=== PATIENT | female | born 1975 | race Caucasian/White ===

== ENCOUNTER 2017-08-01 06:50 | Day surgery (SDC) | payer BC, SELFPAY ==
[2017-07-28 12:31] LABS: Hemoglobin 12.4 g/dl (12.0-15.0); Mean Corp Hgb Conc 32.6 g/gl (32-36); Mean Corpuscular Hgb 29.3 pg (27.0-32.0); Mean Corpuscular Volume 89.8 fL (81-99); Mean Platelet Vol. 11.1 fl (6.2-12.0); Platelet Count 210 K/mm3 (150-450); RBC Distribution Width CV 13.4 % (11.6-14.6); RBC Distribution Width SD 43.9 fl (35.1-43.9); Red Blood Count 4.23 M/mm3 (4.2-5.4); White Blood Count 4.3 K/mm3 (4.4-11.0)
[2017-07-28 12:36] LABS: International Normalized Ratio 1.1; Prothrombin Time (Protime)PT. 13.9 SECONDS (11.7-14.9)
[2017-07-28 12:37] LABS: Partial Thromboplast Time 27.7 Seconds (24.1-36.2)
[2017-07-28 12:39] LABS: Scan Indicated on CBC? Y/N NO
[2017-07-28 13:03] LABS: AST(SGOT) 18 U/L (15-37); Alanine Aminotransfer ALT/SGPT 22 U/L (13-56); Albumin, Serum 3.9 g/dL (3.2-5.0); Alkaline Phosphatase 45 U/L (45-117); Bilirubin, Direct 0.14 mg/dL (0.00-0.30); Globulin 3.4 g/dL (2.2-4.2); Protein, Total 7.3 g/dL (6.4-8.2)
[2017-08-01] VITALS (8 sets, daily range): BP systolic 115–124; BP diastolic 70–82; PULSE 72–102; RESP 16–18; TEMP 36.3–36.7; O2SAT 16–98; BMI 29.2
--- NOTE | 2017-08-01 | THYROID_PTH ---
PATIENT: VANESSA ARGUETA [place] [facility] [place][id number] AGE/SX: 42/F ROOM: RE08/01/[address]: Dr. Sunday Cortez MD : 1975 BED: DIS: 08/01/2017 SPEC #: [id number] RECD: 08/01/17 14:22 STATUS: RUFINO JOE #: [id number] ALEXIS: 08/01/17 00:[address]: Sunday Cortez DEPT: SURGICAL PATHOLOGY RECD BY: Byron Burgos ENTERED: 08/01/17 14:23 SP TYPE: THYROID OTHR DR: Dr. Tushar Thornton MD Tissues: Thyroid gland, NOS Procedures: Surgery Specimen Level V HEADER OPERATION: Thyroid lobectomy PRE-OP DIAGNOSIS: Neoplasm of uncertain behavior of thyroid TISSUE SUBMITTED: Right thyroid lobe MICROSCOPIC DIAGNOSIS Right lobe of thyroid, lobectomy: Colloid nodules with adenomatous change. 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 Three out of three lymph nodes negative for carcinoma. Fragments of parathyroid tissue. AM:hal 08/14/17 COMMENT Three minute foci of papillary microcarcinoma are present in sections of the right thyroid lobe. These measure 1.3, 1.2 and 0.5 mm, respectively. The foci are contained within the thyroid tissue and adjacent, inked peripheral margins are negative for carcinoma. There is no evidence of vascular invasion. Immunohistochemistry ([id number]) supports the above diagnosis. Case has been reviewed in consultation with Dr. Hunter who concurs with the above diagnosis. IDC:SJ MICROSCOPIC DESCRIPTION Slides are reviewed. GROSS DESCRIPTION Received in fixative is one container labeled with the patient's name and designated right thyroid lobe. The specimen consists of a thyroid lobectomy specimen weighing 10 gm and measuring 5 x 3.5 x 1 cm. The specimen is partly disrupted. No externa parathyroid gland tissue is identified. The external surface is inked as follows: anterior surface ? blue, posterior surface ? black, isthmic resection margin ? yellow. Serial sections reveal a guan, solid nodule in the lower portion of the right lobe with focal hemorrhagic area measuring 2 x 2 x 1.5 cm. The entire specimen is submitted in nine cassettes. Cassette 1 contains the most superior portion of the lobe. Cassette 9 contains the most inferior portion of the lobe. Cassettes 69 contain the solid nodule and cassette 7 contains the isthmus. / SJ:rg 08/02/17 TC:0 CPT: 07138
--- NOTE | 2017-08-01 | IMM_PTH ---
PATIENT: VANESSA [place]GUETA [place] [facility] [place][id number] AGE/SX: 42/F ROOM: RE08/01/[address]: Dr. Sunday Cortez MD : 1975 BED: DIS: 08/01/2017 SPEC #: [id number] RECD: 08/03/17 11:24 STATUS: RUFINO JOE #: [id number] ALEXIS: 08/01/17 00:[address]: Sunday Cortez DEPT: IMMUNOHISTOCHEMISTRY RECD BY: Lyly Alexander ENTERED: 08/03/17 11:26 SP TYPE: IMMUNO OTHR DR: Dr. Tushar Thornton MD Tissues: Thyroid gland, NOS Procedures: CK19 (initial) CD56 (add) CK19 (add) GAL-3 (add) HBME (add) PHYSICIAN & INSTITUTION [place] [id number] SPECIMEN INFORMATION: Tissue Source: Right thyroid lobe Clinical Info: Neoplasm Specimen Number: [id number] #7 & 8 CPT code: 23412, 26948 x7 METHODOLOGY: Deparaffinized sections of prefer/formalin-fixed tissue or PAP/DQ stained slides are incubated with monoclonal/polyclonal antibodies/oligonucleotide probes. Localization is made via biotin free immunoperoxidase method. Appropriate controls are performed and reacted as expected. Results on target cell population are indicated in the following table: RESULTS: ANTIBODY / CLONE RESULT Block 7 CK19 (A53-B/A2.26) positive, focal, variable HBME1 (HBME-1) positive GAL3 (9C4) positive, rare, dim CD56 (123C3.D5) positive Block 8 CK19 (A53-B/A2.26) positive, focal, variable HBME1 (HBME-1) positive GAL3 (9C4) positive CD56 (123C3.D5) positive, focal, variable These tests were developed and their performance characteristics determined by [facility]. They may not have been cleared or approved by the U.S. Food and Drug Administration. The FDA has determined that such clearance or approval is not necessary. INTERPRETATION: Right thyroid lobe, lobectomy: Papillary microcarcinoma. AM:hal 08/14/17 Case has been reviewed in consultation with Dr. Hunter who concurs with the above diagnosis. IDC:[email or web address]
[2017-08-01 07:13] LABS: Internal QC Validated? YES +Cl - CLEAR BKGD; Pregnancy, Urine Negative Negative
--- NOTE | 2017-08-01 08:26 | PCM.DC ---
You will use the following diet at home:: No restrictions Discharge Activity: Return to Normal Activity Call your doctor if your incision/area has: Increased Pain/ Swelling Additional Dressing/Incision Instructions:: mupirocin to incision twice daily. keep dry until tomorrow; then wash with soap/water and pat dry. Allergies/Adverse Reactions: Allergies No Known Allergies Allergy (Verified 07/25/17 11:00) Medications to take at Discharge Cyruta Plus 5 tab PO BID 07/25/17 Gotu Isra 1 tab PO TID 07/25/17 Horse Louin Seed [Horse Louin] 200 mg PO TID 07/25/17 Cephalexin [Keflex] 500 mg PO BID #6 08/01/17 Hydrocodone/Acetaminophen [[place]water 5-325 Tablet] 1 ea PO Q6H PRN 5 Days #15 tab 08/01/17 The following prescriptions were given: Cephalexin [Keflex] 500 mg PO BID #6 Hydrocodone/Acetaminophen [[place] 5-325 Tablet] 1 ea PO Q6H PRN 5 Days #15 tab PRN Reason: Pain Primary Care Physician: Tushar Thornton MD [Primary Care Provider] - Please Follow Up With: Jatinder Cortez MD When: monday
--- NOTE | 2017-08-01 08:28 | PCM.OPRPT ---
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 she was placed under general endotracheal anesthesia by the anesthesiologist; the endotracheal tube was secured, the eyes were taped. a shoulder roll was placed and the glide scope was used to confirm correct NIM tube placement. the neck was injected with lidocaine/epinephrine and prepped/draped in sterile fashion. a 4cm transverse incision was made in the inferior neck to the right of midline and the platysma was divided. the infrahyoid strap muscles were divided along their midline raphe. the right superficial and deep straps were dissected with a crile off of the thyroid gland proper. the gland was retracted superomedially and a crile was used to find the recurrent laryngeal nerve. this was stimulated for confirmation. the inferior pedicle was divided with the ligasure. the inferior parathyroid gland was located and preserved. the middle thyroid vein was located and divided with the ligasure. the gland was retracted inferomedially and the superior pedicle was divided with the ligasure. the superior parathyroid was located and preserved. the gland was then retracted medially and the recurrent laryngeal nerve was traced with a kunz dissector to its entrance into the larynx. the isthmus was divided and the right lobe and isthmus were removed. the right recurrent laryngeal nerve was stimulated and confirmed to be intact. a 15 [place] islander FANNY drain was placed and sutured. the strap muscles and platysma were reapproximated with 4-0 vicryl. the superficial skin was brought together with 4-0 vicryl and 5-0 nylon. Grafts/Implants Used: none
--- NOTE | 2017-08-01 08:40 | OP.PCM_ITS ---
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 she was placed under general endotracheal anesthesia by the anesthesiologist; the endotracheal tube was secured, the eyes were taped. a shoulder roll was placed and the glide scope was used to confirm correct NIM tube placement. the neck was injected with lidocaine/epinephrine and prepped/ draped in sterile fashion. a 4cm transverse incision was made in the inferior neck to the right of midline and the platysma was divided. the infrahyoid strap muscles were divided along their midline raphe. the right superficial and deep straps were dissected with a crile off of the thyroid gland proper. the gland was retracted superomedially and a crile was used to find the recurrent laryngeal nerve. this was stimulated for confirmation. the inferior pedicle was divided with the ligasure. the inferior parathyroid gland was located and preserved. the middle thyroid vein was located and divided with the ligasure. the gland was retracted inferomedially and the superior pedicle was divided with the ligasure. the superior parathyroid was located and preserved. the gland was then retracted medially and the recurrent laryngeal nerve was traced with a kunz dissector to its entrance into the larynx. the isthmus was divided and the right lobe and isthmus were removed. the right recurrent laryngeal nerve was stimulated and confirmed to be intact. a 15 dominican FANNY drain was placed and sutured. the strap muscles and platysma were reapproximated with 4-0 vicryl. the superficial skin was brought together with 4-0 vicryl and 5-0 nylon. Grafts/Implants Used: none
[2017-08-01] MEDS: Clindamycin 900 MG/50 ML BAG 75 MG IV (08:58)
[2017-08-01] MEDS: Mupirocin Ointment 22gm Tube 1 APPLIC (09:58)
[2017-08-01] MEDS: HYDROcodone Bitartrate/Apap 5/325 Tablet PO (13:48)
== END 2017-08-01 17:25 | disposition home or self-care (01) ==
LOC: SDC 06:50 → AC 06:51
PROVIDERS: Anesthesiology; Family Provider Orthopaedic Surgery; PCP Orthopaedic Surgery; Visit Provider Otolaryngology
PROC: (CPT 60225; principal; 2017-08-01 08:10)
DX: C73 Malignant neoplasm of thyroid gland (principal); Z86.718 Personal history of other venous thrombosis and embolism; K21.9 Gastro-esophageal reflux disease without esophagitis
CPT/HCPCS: 00320; 60225; 36415; 80076; 81025; 85027; 85610; 85730; 88307; 88341; 88342; J7120; J2405; J3490